=== PATIENT | male | born 1970 | race Caucasian/White ===

== ENCOUNTER 2020-11-15 14:56 | Outpatient (CLI) | payer BC | END 2020-11-15 14:57 | disposition home or self-care (01) | LOC: SCSRAD 14:56 | PROVIDERS: ATTEND Family Medicine | DX: M79.672 Pain in left foot (principal) ==

== ENCOUNTER 2022-04-02 09:06 | Outpatient (CLI) | payer BC ==
[2022-04-02] MEDS ORDERED: Iopamidol 370 76% 100 ML VIAL ONE (10:27)
== END 2022-04-02 09:07 | disposition home or self-care (01) ==
LOC: CT 09:06
PROVIDERS: ATTEND Internal Medicine Medical Oncology
DX: R16.1 Splenomegaly, not elsewhere classified (principal); R74.01 Elevation of levels of liver transaminase levels; E66.9 Obesity, unspecified
CPT/HCPCS: 71260; 74160; Q9967